=== PATIENT | female | born 1990 | race Caucasian/White ===

== ENCOUNTER 2017-12-23 11:16 | Emergency (ER) | payer MEDICAID ==
[~2017-12-23] VITALS: Ht 175.3 cm; Wt 86.0 kg
[~2017-12-23 11:16] MED LIST: ALBU18HF2 IH; GUAI473S11 PO; HYDR-3965 PO; NO HOME MEDS; ONDA4TAB59 PO
[2017-12-23 11:40] VITALS: BP 138/99
[2017-12-23] MEDS ORDERED: mupirocin 2% ointment 22GM TP STA (12:14)
== END 2017-12-23 12:28 | disposition home or self-care (01) ==
LOC: ER 11:17
DX: L03.221 Cellulitis of neck (principal); F15.10 Other stimulant abuse, uncomplicated; F17.200 Nicotine dependence, unspecified, uncomplicated
CPT/HCPCS: 99282

== ENCOUNTER 2018-01-16 11:34 | Emergency (ER) | payer MEDICAID ==
[2018-01-16] MEDS ORDERED: DULO20CA50 PO (16:34)
== END 2018-01-16 13:48 | disposition left against medical advice (07) ==
LOC: ER 11:35
DX: R45.89 Other symptoms and signs involving emotional state (principal); Z53.21 Procedure and treatment not carried out due to patient leaving prior to being seen by health care provider

== ENCOUNTER 2018-02-09 10:20 | Emergency (ER) | payer MEDICAID ==
[~2018-02-09] VITALS: Ht 175.3 cm; Wt 86.4 kg
[~2018-02-09 10:20] MED LIST changes: +DULO20CA50 PO
[2018-02-09 10:44] VITALS: BP 137/89
== END 2018-02-09 10:59 | disposition left against medical advice (07) ==
LOC: ER 10:21
DX: Z00.8 Encounter for other general examination (principal); Z59.0 Homelessness; Z53.21 Procedure and treatment not carried out due to patient leaving prior to being seen by health care provider

== ENCOUNTER 2019-01-03 12:17 | Emergency (ER) | payer MEDICAID ==
[~2019-01-03] VITALS: Ht 175.3 cm; Wt 55.9 kg
[~2019-01-03 12:17] MED LIST changes: +LURA20TA PO; +LURA40TA3 PO; +QUET25TA PO
--- NOTE | 2019-01-03 12:26 | NUR ---
PT GAVE PERMISSION TO CALL HER MOTHER. PT'S MOTHER JANAK MARTINEZ WAS CALLED, NOTIFIED THAT PT WAS IN OUR ER AND THAT DR HESTER WISHED TO SPEAK WITH HER. DR HESTER SPEAKING WITH PT'S MOTHER CURRENTLY.
[2019-01-03] MEDS ORDERED: LORazepam 1 MG tablet PO ONE (12:40)
[2019-01-03] MEDS ORDERED: OLANZapine 5mg rapidly disint. tablet PO ONE (12:40)
[2019-01-03 12:54] LABS: CLARITY,URINE CLEAR (Clear); COLOR,URINE YELLOW (Yellow); GLUCOSE, URINE NEGATIVE (Neg); KETONES,URINE NEGATIVE (Neg); LEUKOCYTE ESTERASE ,URINE NEGATIVE (Neg); NITRITES, URINE NEGATIVE (Neg); OCCULT BLOOD,URINE NEGATIVE (Neg); PH,URINE 7.5 (4.8-8.0); PROTEIN,URINE NEGATIVE (Neg); UROBILINOGEN,URINE 0.2 E.U/dL (0.2-1.0)
[2019-01-03 12:55] LABS: UA COLLECTION TYPE CLN CATCH MIDSTREAM; URINE HCG NEGATIVE (NEG)
[2019-01-03 13:10] LABS: URINE AMPHETAMINE SCREEN NEGATIVE (Neg); URINE BARBITUATE SCREEN NEGATIVE (Neg); URINE BENZODIAZEPINES SCREEN NEGATIVE (Neg); URINE CANNABINOID SCREEN NEGATIVE (Neg); URINE COCAINE SCREEN NEGATIVE (Neg); URINE METHADONE SCREEN NEGATIVE (Neg); URINE OPIATE SCREEN NEGATIVE (Neg); URINE PHENCYCLIDINE SCREEN NEGATIVE (Neg)
[2019-01-03 13:20] LABS: BASOPHILS % (AUTO) 0.4 % (0-1); EOSINOPHILS # (AUTO) 0.1 X10'3 (0-0.9); EOSINOPHILS % (AUTO) 1.2 % (0-6); HEMATOCRIT 41.9 % (35.0-45.0); HEMOGLOBIN 14.4 g/dl (12.0-16.0); LYMPHOCYTES # (AUTO) 2.2 X10'3 (1.1-4.8); LYMPHOCYTES % (AUTO) 30.7 % (21-51); MEAN CORPUSCULAR HEMOGLOBIN 30.6 PG (27.0-31.0); MEAN CORPUSCULAR HGB CONC 34.4 g/dL (33.0-36.5); MEAN PLATELET VOLUME 8.3 FL (7.4-10.4); MONOCYTES # (AUTO) 0.6 X10'3 (0-0.9); MONOCYTES % (AUTO) 8.1 % (2-12); NEUTROPHILS # (AUTO) 4.2 X10'3 (1.8-7.7); NEUTROPHILS % (AUTO) 59.6 % (42-75); PLATELET COUNT 310 X10'3 (140-440); RED BLOOD COUNT 4.71 X10'6 (4.20-5.60); RED CELL DISTRIBUTION WIDTH 13.7 % (11.5-14.5)
[2019-01-03 13:34] LABS: ALANINE AMINOTRANSFERASE 19 U/L (12-78); ALBUMIN 3.7 G/DL (3.4-5.0); ALKALINE PHOSPHATASE 67 IU/L (46-116); ANION GAP 7 (8-16); ASPARTATE AMINO TRANSFERASE 16 U/L (10-37); BILIRUBIN,TOTAL 0.3 MG/DL (0.1-1.0); BLOOD UREA NITROGEN 10 MG/DL (7-18); BUN/CREATININE RATIO 10.1 (6.6-38.0); CALCIUM 9.3 MG/DL (8.5-10.1); CHLORIDE 104 MMOL/L (99-107); CREATININE 0.99 MG/DL (0.40-0.90); GLUCOSE 89 MG/DL (70-104); POTASSIUM 3.7 MMOL/L (3.5-5.1); SODIUM 139 MMOL/L (135-145); TOTAL CARBON DIOXIDE 27.6 MMOL/L (24-32); TOTAL PROTEIN 7.4 G/DL (6.4-8.2); eGFR 66 ML/MIN
[2019-01-03 13:44] LABS: ETHANOL < 0.010 GM/DL (0.0-0.010)
--- NOTE | 2019-01-03 13:44 | NUR ---
Patient by EMS, SI and paranoid from [facility] (half way house). No plan. Patient hearing voices and feels paranoia. Negative urine drug tox. Patient hears voices, command hallucinations telling her to hurt herself and telling her people are out to get her. Patient is negative for Meth but stated she did meth a week ago. Patient thinking about an old boyfriend.
--- NOTE | 2019-01-03 14:47 | NUR ---
pt resting comfortably in bed. no signs of distress noted.
--- NOTE | 2019-01-03 15:14 | NUR ---
I WAS ABLE TO ASSESS PATIENT ABOUT HER SAFETY AND CONCERNS. PT STATED SHE S/I AT THIS TIME. SHE FEELS PARANOID AT TIMES AND SOMETIMES SHE HEARS VOICES THAT TELL HER TO HARM HERSELF AND OTHERS. PT STATES SHE HAS NO INTENT ON ACTING OUT. PT IS [facility] BY EMS. PT ADMITTED TO DOING METH A WEEK AGO. TOX SCREEN CAME BACK NEGATIVE. PT IS RESTING IN BED COMFORTABLY. ALL NEEDS MEET AT THIS TIME.
--- NOTE | 2019-01-03 15:56 | NUR ---
PT RESTING COMFORTABLE AT THIS TIME. NO SIGNS OF DISTRESS.
--- NOTE | 2019-01-03 16:42 | NUR ---
Jacobo duran in [facility] - 01/03/19 at 1643 by PILLO PT UP TO NURSES STATION. PT REQUESTING WATER, NICOTINE LOUNGES, AND BLANKETS.
--- NOTE | 2019-01-03 16:55 | NUR ---
PT RESTING AT THIS TIME. NO SIGNS OF DISTRESS.
--- NOTE | 2019-01-03 17:41 | NUR ---
DR CORDON AT BEDSIDE
--- NOTE | 2019-01-03 19:49 | NUR ---
Packet sent to [facility]. Confirmed receipt of packet with Krystina Corral [place] office.
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
--- NOTE | 2019-01-03 22:11 | NUR ---
The patient appears to be asleep at this time.
--- NOTE | 2019-01-04 00:07 | NUR ---
The patient appears to be asleep.
--- NOTE | 2019-01-04 02:38 | NUR ---
The patient appears to be sleeping
--- NOTE | 2019-01-04 05:12 | NUR ---
The patient appears to be asleep
[2019-01-04 05:30] VITALS: BP 107/65
--- NOTE | 2019-01-04 07:12 | NUR ---
Patient resting comfortably at this time, appears to be sleeping. No apparent distress noted. Will continue to monitor.
--- NOTE | 2019-01-04 09:57 | NUR ---
Patient appears to be asleep at this time
--- NOTE | 2019-01-04 10:44 | NUR ---
[facility] represenative talking with patient bedside
== END 2019-01-04 12:42 | disposition home or self-care (01) ==
LOC: ER 12:17
DX: F22 Delusional disorders (principal); F99 Mental disorder, not otherwise specified; F31.9 Bipolar disorder, unspecified; F15.10 Other stimulant abuse, uncomplicated; Z79.899 Other long term (current) drug therapy; Z59.0 Homelessness; Z60.2 Problems related to living alone; Z56.0 Unemployment, unspecified
CPT/HCPCS: 36415; 80053; 80305; 80320; 81003; 81025; 84443; 85025; 99284

== ENCOUNTER 2019-06-01 15:00 | Emergency (ER) | payer MEDICAID ==
[~2019-06-01] VITALS: Ht 177.8 cm; Wt 100.0 kg
--- NOTE | 2019-06-01 15:11 | NUR ---
Patient takes Invega Sustaina at [facility]. Patient last had her injection about 3 weeks ago but they are not lasting long enough. RN to call and verify last dose. Patient hearing command voices telling her to kill her mom. Continue to monitor.
--- NOTE | 2019-06-01 15:25 | NUR ---
Patient last had 234 mg Invega Sustaina on 05/11/19 per [facility]. Continue to monitor.
--- NOTE | 2019-06-01 15:50 | NUR ---
RN called [facility] to see if DESTINEY Martinez or Dr Antony would be able to see patient to order the Invega Sustaina for patient. RN spoke with Fadia who said the doctors are only just starting to see patients but she would let them know. RN verbalized understanding. Continue to monitor.
[2019-06-01 16:11] LABS: CLARITY,URINE CLEAR (Clear); COLOR,URINE STRAW (Yellow); GLUCOSE, URINE NEGATIVE (Neg); KETONES,URINE NEGATIVE (Neg); LEUKOCYTE ESTERASE ,URINE NEGATIVE (Neg); NITRITES, URINE NEGATIVE (Neg); OCCULT BLOOD,URINE NEGATIVE (Neg); PROTEIN,URINE NEGATIVE (Neg); UROBILINOGEN,URINE 0.2 E.U/dL (0.2-1.0)
[2019-06-01 16:14] LABS: UA COLLECTION TYPE CLN CATCH MIDSTREAM
[2019-06-01 16:15] LABS: URINE HCG NEGATIVE (NEG)
[2019-06-01 16:18] LABS: URINE AMPHETAMINE SCREEN NEGATIVE (Neg); URINE BARBITUATE SCREEN NEGATIVE (Neg); URINE BENZODIAZEPINES SCREEN NEGATIVE (Neg); URINE CANNABINOID SCREEN NEGATIVE (Neg); URINE COCAINE SCREEN NEGATIVE (Neg); URINE METHADONE SCREEN NEGATIVE (Neg); URINE OPIATE SCREEN NEGATIVE (Neg); URINE PHENCYCLIDINE SCREEN NEGATIVE (Neg)
[2019-06-01 16:20] LABS: BASOPHILS # (AUTO) 0.1 X10'3 (0-0.2); BASOPHILS % (AUTO) 0.8 % (0-1); EOSINOPHILS # (AUTO) 0.1 X10'3 (0-0.9); EOSINOPHILS % (AUTO) 1.3 % (0-6); HEMATOCRIT 40.2 % (35.0-45.0); HEMOGLOBIN 13.8 g/dl (12.0-16.0); LYMPHOCYTES # (AUTO) 1.9 X10'3 (1.1-4.8); LYMPHOCYTES % (AUTO) 27.3 % (21-51); MEAN CORPUSCULAR HEMOGLOBIN 29.8 PG (27.0-31.0); MEAN CORPUSCULAR HGB CONC 34.3 g/dL (33.0-36.5); MEAN CORPUSCULAR VOLUME 86.8 FL (78-98); MEAN PLATELET VOLUME 7.9 FL (7.4-10.4); MONOCYTES # (AUTO) 0.8 X10'3 (0-0.9); MONOCYTES % (AUTO) 11.7 % (2-12); NEUTROPHILS # (AUTO) 4.2 X10'3 (1.8-7.7); NEUTROPHILS % (AUTO) 58.9 % (42-75); PLATELET COUNT 306 X10'3 (140-440); RED BLOOD COUNT 4.63 X10'6 (4.20-5.60); RED CELL DISTRIBUTION WIDTH 14.2 % (11.5-14.5); WHITE BLOOD COUNT 7.1 X10'3 (4.5-11.0)
[2019-06-01 16:40] LABS: ALANINE AMINOTRANSFERASE 22 U/L (12-78); ALBUMIN 3.9 G/DL (3.4-5.0); ALBUMIN/GLOBULIN RATIO 0.8 (1.1-1.5); ALKALINE PHOSPHATASE 122 IU/L (46-116); ANION GAP 6 (8-16); ASPARTATE AMINO TRANSFERASE 21 U/L (10-37); BILIRUBIN,TOTAL 0.3 MG/DL (0.1-1.0); BLOOD UREA NITROGEN 13 MG/DL (7-18); BUN/CREATININE RATIO 12.4 (6.6-38.0); CALCIUM 9.7 MG/DL (8.5-10.1); CHLORIDE 104 MMOL/L (99-107); CREATININE 1.05 MG/DL (0.40-0.90); GLUCOSE 89 MG/DL (70-104); POTASSIUM 3.9 MMOL/L (3.5-5.1); SODIUM 141 MMOL/L (135-145); TOTAL CARBON DIOXIDE 30.8 MMOL/L (24-32); TOTAL PROTEIN 8.8 G/DL (6.4-8.2); eGFR 62 ML/MIN
[2019-06-01 16:45] LABS: ETHANOL < 0.010 GM/DL (0.0-0.010)
[2019-06-01 16:47] LABS: ACETAMINOPHEN < 2.0 UG/ML (10-30)
--- NOTE | 2019-06-01 17:17 | NUR ---
Patient wanting to see psychiatrist to get medication. Patient has not seen an E.D. practitioner yet. Continue to monitor.
[2019-06-01 17:54] VITALS: BP 130/91
[2019-06-01] MEDS ORDERED: PALI234D IM (18:27)
[2019-06-01] MEDS ORDERED: QUET25TA PO (18:27)
--- NOTE | 2019-06-01 18:50 | NUR ---
Assumed care from YASMINE Paulson. Received report. The patient's sister is at bedside.
--- NOTE | 2019-06-01 19:39 | NUR ---
The patient is resting with eyes closed on her left side. Respirations are even and unlabored. No s/s of distress.
[2019-06-01] MEDS ORDERED: QUEtiapine 25mg tablet PO SCH (21:00)
[2019-06-10] MEDS ORDERED: paliperidone palmitate inj 234 MG/1.5 ML SYRINGE IM SCH (08:00)
== END 2019-06-01 20:52 | disposition home or self-care (01) ==
LOC: ER 15:01
DX: R44.0 Auditory hallucinations (principal); F31.9 Bipolar disorder, unspecified; F15.90 Other stimulant use, unspecified, uncomplicated; Z56.0 Unemployment, unspecified; Z59.0 Homelessness; Z79.899 Other long term (current) drug therapy
CPT/HCPCS: 36415; 80053; 80305; 80320; 80329; 81003; 81025; 84443; 85025; 99284

== ENCOUNTER 2019-10-25 19:36 | Emergency (ER) | payer MEDICAID ==
[~2019-10-25] VITALS: Ht 175.3 cm; Wt 100.0 kg
[~2019-10-25 19:36] MED LIST changes: -ALBU18HF2 IH; -DULO20CA50 PO; -GUAI473S11 PO; -HYDR-3965 PO; -LURA20TA PO; -LURA40TA3 PO; -NO HOME MEDS; -ONDA4TAB59 PO; +PALI234D IM
[2019-10-25 19:44] VITALS: BP 129/95
[2019-10-25 20:46] LABS: ALANINE AMINOTRANSFERASE 17 U/L (12-78); ALBUMIN 3.8 G/DL (3.4-5.0); ALBUMIN/GLOBULIN RATIO 0.9 (1.1-1.5); ALKALINE PHOSPHATASE 103 IU/L (46-116); ANION GAP 8 (8-16); ASPARTATE AMINO TRANSFERASE 19 U/L (10-37); BASOPHILS % (AUTO) 0.5 % (0-1); BILIRUBIN,TOTAL 0.2 MG/DL (0.1-1.0); BLOOD UREA NITROGEN 13 MG/DL (7-18); CALCIUM 9.4 MG/DL (8.5-10.1); CHLORIDE 105 MMOL/L (99-107); CREATININE 1.08 MG/DL (0.40-0.90); EOSINOPHILS # (AUTO) 0.1 X10'3 (0-0.9); GLUCOSE 96 MG/DL (70-104); HEMATOCRIT 39.5 % (35.0-45.0); HEMOGLOBIN 13.6 g/dl (12.0-16.0); LYMPHOCYTES # (AUTO) 2.8 X10'3 (1.1-4.8); LYMPHOCYTES % (AUTO) 30.6 % (21-51); MEAN CORPUSCULAR HEMOGLOBIN 29.9 PG (27.0-31.0); MEAN CORPUSCULAR HGB CONC 34.3 g/dL (33.0-36.5); MEAN CORPUSCULAR VOLUME 87.2 FL (78-98); MEAN PLATELET VOLUME 8.5 FL (7.4-10.4); MONOCYTES # (AUTO) 0.6 X10'3 (0-0.9); MONOCYTES % (AUTO) 6.3 % (2-12); NEUTROPHILS # (AUTO) 5.7 X10'3 (1.8-7.7); NEUTROPHILS % (AUTO) 61.6 % (42-75); PLATELET COUNT 345 X10'3 (140-440); POTASSIUM 3.6 MMOL/L (3.5-5.1); RED BLOOD COUNT 4.53 X10'6 (4.20-5.60); RED CELL DISTRIBUTION WIDTH 13.3 % (11.5-14.5); SODIUM 142 MMOL/L (135-145); TOTAL CARBON DIOXIDE 29.4 MMOL/L (24-32); TOTAL PROTEIN 8.1 G/DL (6.4-8.2); WHITE BLOOD COUNT 9.2 X10'3 (4.5-11.0); eGFR 60 ML/MIN
[2019-10-25 20:54] LABS: URINE HCG NEGATIVE (NEG)
[2019-10-25 20:54] LABS: ETHANOL < 0.010 GM/DL (0.0-0.010)
[2019-10-25 21:02] LABS: CLARITY,URINE CLEAR (Clear); COLOR,URINE YELLOW (Yellow); GLUCOSE, URINE NEGATIVE (Neg); KETONES,URINE NEGATIVE (Neg); LEUKOCYTE ESTERASE ,URINE NEGATIVE (Neg); NITRITES, URINE NEGATIVE (Neg); OCCULT BLOOD,URINE SMALL (Neg); PH,URINE 5.5 (4.8-8.0); PROTEIN,URINE NEGATIVE (Neg); UA COLLECTION TYPE CLN CATCH MIDSTREAM; UROBILINOGEN,URINE 0.2 E.U/dL (0.2-1.0)
--- NOTE | 2019-10-25 21:03 | NUR ---
PATIENT'S HOME MEDICATIONS SENT TO PHARMACY
[2019-10-25 21:09] LABS: URINE AMPHETAMINE SCREEN NEGATIVE (Neg); URINE BARBITUATE SCREEN NEGATIVE (Neg); URINE BENZODIAZEPINES SCREEN NEGATIVE (Neg); URINE CANNABINOID SCREEN NEGATIVE (Neg); URINE COCAINE SCREEN NEGATIVE (Neg); URINE METHADONE SCREEN NEGATIVE (Neg); URINE OPIATE SCREEN NEGATIVE (Neg); URINE PHENCYCLIDINE SCREEN NEGATIVE (Neg)
[2019-10-25 21:31] LABS: BACTERIA,URINE FEW /HPF (Neg); MUCUS STRANDS NONE SEEN /LPF (Neg); RBC,URINE 0-2 /HPF (0-2); SQUAMOUS EPITHELIAL CELL,UR FEW /LPF (FEW); WBC,URINE 0-4 /HPF (0-4)
[2019-10-25] MEDS ORDERED: PALI9TAB PO (21:41)
[2019-10-25] MEDS ORDERED: paliperidone palmitate inj 234 MG/1.5 ML SYRINGE IM SCH (22:15)
[2019-10-25] MEDS ORDERED: QUEtiapine 25mg tablet PO ONE (23:45)
[2019-10-26] MEDS ORDERED: PALIPERIDONE 3 MG TAB.ER.24 PO SCH (08:00)
[2019-10-26] MEDS ORDERED: nicotine prolacrilex 2mg gum BC PRN (09:50)
--- NOTE | 2019-10-26 11:34 | NUR ---
PATIENT TRANSFERED WITH [employer]ING CONSULTANT TO ROOM WC4 AT THIS TIME, NO SIGNS OF DISTRESS NOTED, ALL SAFETY MEASURES IN PLACE, PAT IN SIGHT OF STAFF AT ALL TIMES.
--- NOTE | 2019-10-26 12:13 | NUR ---
Patient now being seen by [facility].
[2019-10-26] MEDS ORDERED: QUEtiapine 25mg tablet PO SCH (21:00)
== END 2019-10-26 13:36 ==
LOC: ER 19:36
DX: F22 Delusional disorders (principal); F20.9 Schizophrenia, unspecified; F31.9 Bipolar disorder, unspecified; Z72.89 Other problems related to lifestyle; Z79.899 Other long term (current) drug therapy
CPT/HCPCS: 36415; 80053; 80305; 80320; 81001; 81025; 84443; 85025; 99284

== ENCOUNTER 2024-04-02 11:55 | Outpatient (CLI) | payer MEDICAID ==
[~2024-04-02 11:55] MED LIST changes: +PALI9TAB PO
== END 2024-04-02 23:59 | disposition home or self-care (01) ==
LOC: RAD 11:55
PROVIDERS: ATTEND Nurse Practitioner Psychiatric/Mental Health
DX: F25.0 Schizoaffective disorder, bipolar type (principal); Z79.899 Other long term (current) drug therapy
CPT/HCPCS: 93005